=== PATIENT | female | born 1965 | race American Indian/Alaskan Native ===

== ENCOUNTER 2019-05-24 17:51 | Emergency (ER) | payer SELFPAY ==
--- NOTE | 2019-05-24 18:39 | Emergency Department Report ---
Chief Complaint: Dental/Oral Stated Complaint: LFT SIDE TOOTHACHE/PAIN Time Seen by Provider: 05/24/19 18:33 - HPI History of Present Illness: pt is a 53 yo female who presents to the ED with c/o left lower dental pain for a week has not seen a dentist since 5 years ago no n/v/d no fever states she is tolerating PO intake without difficulty PMHx DM, HLD allergy: PCN, codeine vss on exam: Non toxic appearing, no acute distress atraumatic, normocephalic normal appearance of the eyes, PERRL, EOMI, no periorbital edema or ecchymosis moist mucus membranes left lower cracked tooth with dental caries, there is no induration or edema of the gum line, no facial edema, uvula is midline, no uvular edema, no uvular deviation regular heart rate and rhythm, no gallops, no rubs, no murmurs breath sounds are clear bilaterally, no w/r/r A&O x4, no focal neuro deficit skin is warm, dry, intact Examination consistent with dental caries and cracked tooth No signs of dental abscess or facial cellulitis Medical screening examination performed and there is no threat to life or limb at this time Patient given community resources for dental clinics Discussed the importance of following up with the dental clinic Discussed strict return precautions with patient MSE screening note: Focused history and physical exam performed. ED Disposition for MSE Clinical Impression: Cracked tooth, Pain, dental, Dental caries Disposition: MED SCREENING EXAM-LEFT Is pt being admited?: No Does the pt Need Aspirin: No Condition: Stable Instructions: Dental Caries (ED) Additional Instructions: may use tylenol or ibuprofen every 6 hours as needed for pain. may use dental putty over the counter. follow up with a dentist. it is very important to follow up with a dentist. return to the emergency room for any new or worsening symptoms. Referrals: [facility] [Outside] - 2-3 Days Time of Disposition: 18:37 Print Language: SYRIAC
[2019-05-24 18:43] VITALS: BP 148/83
== END 2019-05-24 20:15 | disposition left against medical advice (07) ==
LOC: ED 17:51
DX: K03.81 Cracked tooth (principal); K02.9 Dental caries, unspecified; Z88.6 Allergy status to analgesic agent; Z88.0 Allergy status to penicillin
CPT/HCPCS: 99281